=== PATIENT | male | born 1965 | race Caucasian/White ===

== ENCOUNTER 2019-02-17 20:20 | Emergency (ER) | payer OTHER, SELFPAY ==
[2019-02-17 20:22] VITALS: BP 147/100; PULSE 92; RESP 14; TEMP 36.9; O2SAT 95
--- NOTE | 2019-02-17 21:12 | ED.EYEPROB ---
HPI - Eye Problem <Eryn Willis PA-C - Last Filed: 02/17/19 22:33> General Chief complaint: Eye Problems Stated complaint: [place] eye hurts Time Seen by Provider: 02/17/19 21:11 Source: patient Mode of arrival: ambulatory Limitations: no limitations History of Present Illness HPI Narrative: This 53-year-old male comes to ED thinking he has pinkeye. He states that he developed redness in his left eye yesterday and it spread to the right eye today. He states he has had ?goopy? eyes, worse in the morning. He states his vision is normal, but he feels a lot of pressure behind his eyes. He has had pinkeye in the past and states this pain feels different. He states he had more light sensitivity this morning than he does now. he describes being able to feel the pain behind his eyes as well. He states that a couple of days ago, he had fever and chills but that resolved. He was exposed to a sick 4-year-old with upper respiratory symptoms prior. He denies any earache, sinus pain, cough or other respiratory symptoms currently. He denies any chronic medical problems, remote history of hypertension that has been treated with diet modification and weight loss. No history of chronic eye problems, no rheumatologic disease. Patient does wear contacts but has not been wearing them since this started yesterday. Related Data Allergies Allergy/AdvReac Type Severity Reaction Status Date / Time prochlorperazine Allergy Intermediate Unconscious Verified 02/17/19 20:26 [From Compazine] diphenhydramine AdvReac Intermediate Shakiness Verified 02/17/19 20:26 [From Benadryl] Review of Systems <Eryn Willis PA-C - Last Filed: 02/17/19 22:33> Review of Systems ROS Unobtainable: All systems reviewed & are unremarkable except as noted in HPI and below PFSH <Eryn Willis PA-C - Last Filed: 02/17/19 22:33> Medical History (Updated 02/17/19 @ 22:11 by Eryn Willis PA-C) H/O: HTN (hypertension) (Chronic) Surgical History (Updated 02/17/19 @ 21:28 by Eryn Willis PA-C) History of open reduction and internal fixation (ORIF) procedure (Resolved) Social History Smoking Status: Never smoker Social History Smoking Status: Never smoker Exam <Eryn Willis PA-C - Last Filed: 02/17/19 22:33> Narrative Exam Narrative: GENERAL APPEARANCE: Patient sitting comfortably, in no distress. HEENT: Vision corrected: OU 20/20, OS 20/25, OD 20/30. Pressures: OS 14, 0D 22 There is bright bilateral conjunctival erythema but also there is considerable scleral injection bilaterally, appears superficial. PERRLA, EOMI, no tenderness with EOM, no photophobia on exam LUNGS: Clear to auscultation bilaterally. HEART: Rate and rhythm regular without murmur, normal S1 and S2, no S3 or S4. Initial Vital Signs Initial Vital Signs: Vital Signs Temperature 98.5 F 02/17/19 20:22 Pulse Rate 92 H 02/17/19 20:22 Respiratory Rate 14 02/17/19 20:22 Blood Pressure 147/100 H 02/17/19 20:22 Pulse Oximetry 95 02/17/19 20:22 <Adrián Quinones DO - Last Filed: 02/18/19 04:07> Initial Vital Signs Initial Vital Signs: Vital Signs Temperature 98.5 F 02/17/19 20:22 Pulse Rate 92 H 02/17/19 20:22 Respiratory Rate 14 02/17/19 20:22 Blood Pressure 147/100 H 02/17/19 20:22 Pulse Oximetry 95 02/17/19 20:22 Course <Eryn Willis PA-C - Last Filed: 02/17/19 22:33> Additional Information: Patient evaluated with Dr. Quinones who agrees that patient does need ophthalmology follow-up to evaluate for possible scleritis, but also has features of conjunctivitis. He does not have pain with extraocular movements, does not have photophobia, pressures are normal or minimally elevated. Will start antibiotic drops tonight, the contacts out, and he thinks he will be able to get in with his chief operator when he returns tomorrow. He agreed to return if any acutely worsening symptoms in the interim Orders Ordered: Discontinued Medications Ofloxacin (Ocuflox) 1 bottle MISC SEEINSTR ONE Stop: 02/17/19 22:09 Last Admin: 02/17/19 22:23 Dose: 1 drops Proparacaine HCl (Parcaine 0.5% Ophth Mary) 1 drops EYE-BOTH NOW ONE Stop: 02/17/19 22:09 Last Admin: 02/17/19 22:22 Dose: 2 drop Vital Signs - 8 hr 02/17/19 20:22 02/17/19 22:18 Temperature 98.5 F 98.9 F Pulse Rate 92 H 80 Respiratory Rate 14 17 Blood Pressure 147/100 H Blood Pressure [Left Arm] 149/79 H Pulse Oximetry 95 98 <Adrián Quinones DO - Last Filed: 02/18/19 04:07> Orders Ordered: Discontinued Medications Ofloxacin (Ocuflox) 1 bottle MISC SEEINSTR ONE Stop: 02/17/19 22:09 Last Admin: 02/17/19 22:23 Dose: 1 drops Proparacaine HCl (Parcaine 0.5% Ophth Mary) 1 drops EYE-BOTH NOW ONE Stop: 02/17/19 22:09 Last Admin: 02/17/19 22:22 Dose: 2 drop Vital Signs - 8 hr 02/17/19 20:22 02/17/19 22:18 Temperature 98.5 F 98.9 F Pulse Rate 92 H 80 Respiratory Rate 14 17 Blood Pressure 147/100 H Blood Pressure [Left Arm] 149/79 H Pulse Oximetry 95 98 Discharge Plan Departure Patient Disposition: Home Clinical Impression: Bacterial conjunctivitis Discharge Date/Time: 02/17/19 22:27 Interventions: ED Discharge Assessment Last Done: 02/17/19 22:30 Instructions: DI for Conjunctivitis, DI for Eye Pain Activity Restrictions/Additional Instructions: You should return to the closest ED if you have any acutely worsening symptoms. otherwise, please call your chief operator 1st thing in the morning and schedule a follow-up appointment for tomorrow preferably, if not the next day. You do have symptoms of conjunctivitis (pinkeye), but the appearance and the deep pain in your eyes also concern as somewhat for inflammation of the superficial blood vessels in the eye, so we want you to see the eye doctor for this. Please do not wear contact lenses until you see the eye doctor and they say it is safe to wear them again. Please start the antibiotic eyedrops that we gave you (ofloxacin), 1 drop every 3 hours in each eye while your awake until you see the chief operator. Your eye pressures today were as a reference for when you see the chief operator. <Adrián Quinones, DO - Last Filed: 02/18/19 04:07> [facility] ED Attending Josef Attestation: I was immediately available in the department for consultation. Documentation has been reviewed. I agree with assessment and plan.
--- NOTE | 2019-02-17 21:29 | ED_ITS ---
HPI - Eye Problem <Eryn Willis PA-C - Last Filed: 02/17/19 22:33> General Chief complaint: Eye Problems Stated complaint: [place] eye hurts Time Seen by Provider: 02/17/19 21:11 Source: patient Mode of arrival: ambulatory Limitations: no limitations History of Present Illness HPI Narrative: This 53-year-old male comes to ED thinking he has pinkeye. He states that he developed redness in his left eye yesterday and it spread to the right eye today. He states he has had ?goopy? eyes, worse in the morning. He states his vision is normal, but he feels a lot of pressure behind his eyes. He has had pinkeye in the past and states this pain feels different. He states he had more light sensitivity this morning than he does now. he describes being able to feel the pain behind his eyes as well. He states that a couple of days ago, he had fever and chills but that resolved. He was exposed to a sick 4-year-old with upper respiratory symptoms prior. He denies any earache, sinus pain, cough or other respiratory symptoms currently. He denies any chronic medical problems, remote history of hypertension that has been treated with diet modification and weight loss. No history of chronic eye problems, no rheumatologic disease. Patient does wear contacts but has not been wearing them since this started yesterday. Related Data Allergies Allergy/AdvReac Type Severity Reaction Status Date / Time prochlorperazine Allergy Intermediate Unconscious Verified 02/17/19 20:26 [From Compazine] diphenhydramine AdvReac Intermediate Shakiness Verified 02/17/19 20:26 [From Benadryl] Review of Systems <Eryn Willis PA-C - Last Filed: 02/17/19 22:33> Review of Systems ROS Unobtainable: All systems reviewed & are unremarkable except as noted in HPI and below PFSH <Eryn Willis PA-C - Last Filed: 02/17/19 22:33> Medical History (Updated 02/17/19 @ 22:11 by Eryn Willis PA-C) H/O: HTN (hypertension) (Chronic) Surgical History (Updated 02/17/19 @ 21:28 by Eryn Willis PA-C) History of open reduction and internal fixation (ORIF) procedure (Resolved) Social History Smoking Status: Never smoker Social History Smoking Status: Never smoker Exam <Eryn Willis PA-C - Last Filed: 02/17/19 22:33> Narrative Exam Narrative: GENERAL APPEARANCE: Patient sitting comfortably, in no distress. HEENT: Vision corrected: OU 20/20, OS 20/25, OD 20/30. Pressures: OS 14, 0D 22 There is bright bilateral conjunctival erythema but also there is considerable scleral injection bilaterally, appears superficial. PERRLA, EOMI, no tenderness with EOM, no photophobia on exam LUNGS: Clear to auscultation bilaterally. HEART: Rate and rhythm regular without murmur, normal S1 and S2, no S3 or S4. Initial Vital Signs Initial Vital Signs: Vital Signs Temperature 98.5 F 02/17/19 20:22 Pulse Rate 92 H 02/17/19 20:22 Respiratory Rate 14 02/17/19 20:22 Blood Pressure 147/100 H 02/17/19 20:22 Pulse Oximetry 95 02/17/19 20:22 <Adrián Quinones DO - Last Filed: 02/18/19 04:07> Initial Vital Signs Initial Vital Signs: Vital Signs Temperature 98.5 F 02/17/19 20:22 Pulse Rate 92 H 02/17/19 20:22 Respiratory Rate 14 02/17/19 20:22 Blood Pressure 147/100 H 02/17/19 20:22 Pulse Oximetry 95 02/17/19 20:22 Course <Eryn Willis PA-C - Last Filed: 02/17/19 22:33> Additional Information: Patient evaluated with Dr. Quinones who agrees that patient does need ophthalmology follow-up to evaluate for possible scleritis, but also has features of conjunctivitis. He does not have pain with extraocular movements, does not have photophobia, pressures are normal or minimally elevated. Will start antibiotic drops tonight, the contacts out, and he thinks he will be able to get in with his human projectile when he returns tomorrow. He agreed to return if any acutely worsening symptoms in the interim Orders Ordered: Discontinued Medications Ofloxacin (Ocuflox) 1 bottle MISC SEEINSTR ONE Stop: 02/17/19 22:09 Last Admin: 02/17/19 22:23 Dose: 1 drops Proparacaine HCl (Parcaine 0.5% Ophth Mary) 1 drops EYE-BOTH NOW ONE Stop: 02/17/19 22:09 Last Admin: 02/17/19 22:22 Dose: 2 drop Vital Signs - 8 hr 02/17/19 20:22 02/17/19 22:18 Temperature 98.5 F 98.9 F Pulse Rate 92 H 80 Respiratory Rate 14 17 Blood Pressure 147/100 H Blood Pressure [Left Arm] 149/79 H Pulse Oximetry 95 98 <Adrián Quinones DO - Last Filed: 02/18/19 04:07> Orders Ordered: Discontinued Medications Ofloxacin (Ocuflox) 1 bottle MISC SEEINSTR ONE Stop: 02/17/19 22:09 Last Admin: 02/17/19 22:23 Dose: 1 drops Proparacaine HCl (Parcaine 0.5% Ophth Mary) 1 drops EYE-BOTH NOW ONE Stop: 02/17/19 22:09 Last Admin: 02/17/19 22:22 Dose: 2 drop Vital Signs - 8 hr 02/17/19 20:22 02/17/19 22:18 Temperature 98.5 F 98.9 F Pulse Rate 92 H 80 Respiratory Rate 14 17 Blood Pressure 147/100 H Blood Pressure [Left Arm] 149/79 H Pulse Oximetry 95 98 Discharge Plan Departure Patient Disposition: Home Clinical Impression: Bacterial conjunctivitis Discharge Date/Time: 02/17/19 22:27 Interventions: ED Discharge Assessment Last Done: 02/17/19 22:30 Instructions: DI for Conjunctivitis, DI for Eye Pain Activity Restrictions/Additional Instructions: You should return to the closest ED if you have any acutely worsening symptoms. otherwise, please call your human projectile 1st thing in the morning and schedule a follow-up appointment for tomorrow preferably, if not the next day. You do have symptoms of conjunctivitis (pinkeye), but the appearance and the deep pain in your eyes also concern as somewhat for inflammation of the superficial blood vessels in the eye, so we want you to see the eye doctor for this. Please do not wear contact lenses until you see the eye doctor and they say it is safe to wear them again. Please start the antibiotic eyedrops that we gave you (ofloxacin), 1 drop every 3 hours in each eye while your awake until you see the human projectile. Your eye pressures today were as a reference for when you see the human projectile. <Adrián Quinones, DO - Last Filed: 02/18/19 04:07> [facility] ED Attending Josef Attestation: I was immediately available in the department for consultation. Documentation has been reviewed. I agree with assessment and plan.
[2019-02-17 22:18] VITALS: BP 149/79; PULSE 80; RESP 17; TEMP 37.2; O2SAT 98
[2019-02-17] MEDS: PROPARACAINE 0.5% OPHTH SOL 1 DROPS EYE-BOTH (22:22)
[2019-02-17] MEDS: OFLOXACIN 0.3% OPHTH PREPACK 1 BOTTLE MISC (22:23)
== END 2019-02-17 22:27 | disposition home or self-care (01) ==
PROVIDERS: Emergency Provider Internal Medicine
DX: H10.9 Unspecified conjunctivitis (principal)
CPT/HCPCS: 99283